=== PATIENT | female | born 1995 | race Caucasian/White ===

== ENCOUNTER 2022-02-14 14:53 | Emergency (ER) | payer OTHER ==
[~2022-02-14 14:53] MED LIST: ONDANSETRON ODT4 MG PO
[2022-02-14 15:34] LABS: BASOPHIL 0.3 % (0-2); EOSINOPHIL 0.5 % (0-5); HCT 37.8 % (37.0-47.0); HGB 12.9 g/dl (12.5-16.0); MCH 30.7 pg (25.0-31.0); MCHC 34.1 g/dL (32.0-36.0); MONOCYTE 3.6 % (0-12); MPV 10.1 fL (6.0-9.5); NEUTROPHIL 73.7 % (41-80); NRBC 0; PLT 282 K/uL (150-400); RDW 12.1 % (11.5-14.0); WBC 6.6 K/uL (4.0-10.5)
== END 2022-02-14 16:55 | disposition home or self-care (01) ==
LOC: FER 14:53
PROVIDERS: Emergency Medicine
DX: N92.0 Excessive and frequent menstruation with regular cycle (principal); Z28.310 Unvaccinated for COVID-19
CPT/HCPCS: 36415; 84702; 85025; 99284